=== PATIENT | male | born 1930 | race Two or more races ===

== ENCOUNTER 2019-03-13 07:26 | Emergency (ER) | payer MEDICARE ==
[~2019-03-13] VITALS: Ht 175.3 cm; Wt 64.0 kg
--- NOTE | 2019-03-13 07:32 | NUR ---
PT BIBRA FROM HOME TO ER BED 09 C/O DIZZINESS WHILE TRYING TO GET UP UPON WAKING UP DESCRIBING IT " THE ROOM IS SPINNING. PT DENIES ANY OTHER COMPLAINTS AT THIS TIME. PT IS FARSI SPEAKING. GOWNED AND PLACED ON MONITOR. VSS. AWAITING MD WATSON.
--- NOTE | 2019-03-13 07:40 | NUR ---
DR DOOLEY AT BEDSIDE FOR EVAL.
[2019-03-13] MEDS ORDERED: MECLIZINE HCL 12.5 MG TABLET ONE (07:52)
[2019-03-13] MEDS ORDERED: MECLIZINE HCL 12.5 MG TABLET PO ONE (08:00)
[2019-03-13] MEDS ORDERED: IV NS 0.9% 500 ML BAG IV ONE (08:00)
[2019-03-13 08:01] LABS: BASOPHILS % (AUTO) 0.5 % (0.0-2.0); EOSINOPHILS % (AUTO) 2.7 % (0.0-6.0); HEMATOCRIT 33 % (39-51); HEMOGLOBIN 10.6 g/dL (13.5-17.5); LYMPHOCYTES # (AUTO) 1.5 /CMM (0.8-4.8); LYMPHOCYTES % (AUTO) 29.7 % (20.0-44.0); MEAN CORPUSCULAR HGB CONC 32 g/dl (31.0-36.0); MEAN CORPUSCULAR VOLUME 66 fL (80-96); MONOCYTES # (AUTO) 0.3 /CMM (0.1-1.30); MONOCYTES % (AUTO) 5.3 % (2.0-12.0); NEUTROPHILS # (AUTO) 3.2 /CMM (1.8-8.9); NEUTROPHILS % (AUTO) 61.8 % (43.0-81.0); PLATELET COUNT (AUTO) 148 /CMM (150-450); RED BLOOD CELL COUNT(AUTO) 5.03 MIL/uL (4.5-6.0); WHITE BLOOD COUNT (AUTO) 5.2 K/uL (4.3-11.0)
[2019-03-13 08:04] LABS: CALCIUM, SERUM 8.5 mg/dL (8.5-10.1); CARBON DIOXIDE 30 mmol/L (21-32); CHLORIDE 105 mmol/L (98-107); CREATININE 0.8 mg/dL (0.6-1.3); GLUCOSE 106 mg/dL (74-106); POTASSIUM 3.8 mmol/L (3.5-5.1); SODIUM SERUM 141 mmol/L (136-145); UREA NITROGEN, BLOOD 17 mg/dL (7-18)
--- NOTE | 2019-03-13 09:47 | NUR ---
Patient discharged to home in stable condition. Written and verbal after care instructions given. Patient verbalizes understanding of instruction.IV removed. Catheter intact and site benign. Pressure and 4x4 applied to site. No bleeding noted.
[2019-03-13 09:48] VITALS: BP 121/86
== END 2019-03-13 09:49 | disposition home or self-care (01) ==
LOC: ER 07:29
DX: H81.399 Other peripheral vertigo, unspecified ear (principal)
CPT/HCPCS: 36415; 70450; 80048; 84484; 85025; 93005; 99284; J7040; J8597

== ENCOUNTER 2019-03-29 17:04 | Emergency (ER) | payer MEDICARE ==
[~2019-03-29] VITALS: Ht 175.3 cm; Wt 64.4 kg
[2019-03-29 17:44] VITALS: BP 120/71
--- NOTE | 2019-03-29 17:46 | NUR ---
atory with steady gait.Patient discharged to home in stable condition. Written and verbal after care instructions given. Patient verbalizes understanding of instruction. Prescription given to . Ambul
== END 2019-03-29 17:45 | disposition home or self-care (01) ==
LOC: ER 17:05
DX: Z76.0 Encounter for issue of repeat prescription (principal)